=== PATIENT | female | born 1965 | race Caucasian/White ===

== ENCOUNTER → 2017-02-20 | Outpatient (CLI) | payer BC ==
[~2017-02-20] MED LIST: ASCA500 PO; CALC-20 PO; LEVO25TA PO; LEVO50TA PO; MULT-506 PO; VITBC PO
== END | disposition home or self-care (01) ==
LOC: C.LABPVFM 08:20
PROVIDERS: ATTEND Family Medicine
DX: Z13.21 Encounter for screening for nutritional disorder (principal); E89.0 Postprocedural hypothyroidism; Z90.49 Acquired absence of other specified parts of digestive tract; E55.9 Vitamin D deficiency, unspecified

== ENCOUNTER → 2017-04-05 | Outpatient (CLI) | payer BC ==
--- NOTE | 2017-04-05 13:28 | MAMMOGRAPHY REPORT ---
BILATERAL DIGITAL SCREENING MAMMOGRAM TOMOSYNTHESIS WITH CAD: 04/05/2017 CLINICAL HISTORY: Routine screening. Patient has no complaints. TECHNIQUE: Breast tomosynthesis in addition to standard 2D mammography was performed. Current study was also evaluated with a Computer Aided Detection (CAD) system. COMPARISON: Comparison is made to exams dated: 03/23/2016 mammogram, 11/03/2014 mammogram, 08/01/2013 m ammogram, 07/30/2012 mammogram, 07/27/2011 mammogram - [facility], and 07/07/2008. BREAST COMPOSITION: The tissue of both breasts is extremely dense, which lowers the sensitivity of m ammography. FINDINGS: No suspicious masses, calcifications, or areas of architectural distortion are noted in ei ther breast. There has been no significant interval change compared to prior exams. IMPRESSION: ACR BI-RADS CATEGORY 1: NEGATIVE There is no mammographic evidence of malignancy. A 1 year screening mammogram is recommended. The pa tient will receive written notification of the results. Approximately 10% of breast cancers are not detected with mammography. A negative mammographic report should not delay biopsy if a clinically suggestive mass is present. Solange Hook M.D. ah/:04/05/2017 08:59:49 Business Department Chair: Jeaneth CASTANEDA(Jose)(), [facility] letter sent: Normal 1/2 BI-RADS Code: ACR BI-RADS Category 1: Negative
== END | disposition home or self-care (01) ==
LOC: C.MAMM 08:35
PROVIDERS: ATTEND Family Medicine
DX: Z12.31 Encounter for screening mammogram for malignant neoplasm of breast (principal)

== ENCOUNTER → 2017-09-18 | Outpatient (CLI) | payer BC ==
[2017-09-18 18:19] LABS: LYME DISEASE AB IGG NEG (NEG); LYME DISEASE AB IGM NEG (NEG)
== END | disposition home or self-care (01) ==
LOC: C.LABPVFM 14:46
PROVIDERS: ATTEND Family Medicine
DX: T14.8XXA Other injury of unspecified body region, initial encounter (principal); W57.XXXA Bitten or stung by nonvenomous insect and other nonvenomous arthropods, initial encounter

== ENCOUNTER → 2017-09-25 | Outpatient (CLI) | payer BC ==
--- NOTE | 2017-09-25 15:06 | DIAGNOSTIC IMAGING REPORT ---
CHEST 2 VIEWS ROUTINE CLINICAL HISTORY: Cough dyspnea COMPARISON STUDY: 06/06/2015 FINDINGS: The bones soft tissues and hemidiaphragms are normal. The cardiomediastinal silhouette is normal. The lungs are clear. The pulmonary vasculature is normal. IMPRESSION: Negative chest. The above report was generated using voice recognition software. It may contain grammatical, syntax or spelling errors. Electronically signed by: Chidi Hayward M.D. 09/25/2017 3:04 PM Dictated Date/Time: 09/25/2017 3:04 PM
== END | disposition home or self-care (01) ==
LOC: C.LABPVFM 14:40
PROVIDERS: ATTEND Family Medicine
DX: R05 Cough (principal)

== ENCOUNTER → 2018-02-02 | Outpatient (CLI) | payer BC | END | disposition home or self-care (01) | LOC: C.PAPS 12:02 | PROVIDERS: ATTEND Obstetrics & Gynecology | DX: Z01.419 Encounter for gynecological examination (general) (routine) without abnormal findings (principal) ==

== ENCOUNTER → 2018-02-23 | Outpatient (CLI) | payer BC | END | disposition home or self-care (01) | LOC: C.LABPVFM 08:30 | PROVIDERS: ATTEND Family Medicine | DX: Z13.220 Encounter for screening for lipoid disorders (principal); E89.0 Postprocedural hypothyroidism; Z90.49 Acquired absence of other specified parts of digestive tract; E55.9 Vitamin D deficiency, unspecified; F32.9 Major depressive disorder, single episode, unspecified; M25.50 Pain in unspecified joint ==

== ENCOUNTER 2022-12-11 19:23 | Inpatient (IN) ==
[2022-12-11] MEDS ORDERED: MoRPHine SULFATE 4 MG/ML 1 ML CARP\\VIAL IV STA (19:50)
[2022-12-11] MEDS ORDERED: ACETAMINOPHEN 1,000 MG/100 ML VIAL IV STA (19:50)
[2022-12-11] MEDS ORDERED: SODIUM CHLORIDE 0.9% 1000ML 1,000 ML IV SCH (20:00)
[2022-12-11 20:35] LABS: Albumin Globulin Ratio 1.6 (0.9-2); Albumin Level 4.6 gm/dl (3.4-5.0); BUN Creatinine Ratio 19.4 (10-20); Bilirubin,Total 0.6 mg/dl (0.2-1.0); Calcium 9.8 mg/dl (8.5-10.1); Creatinine Clr Calc Pharmacy 53.7 ml/min; Est GFR (African American) 75.3 ml/min; Est GFR (Non-African American) 64.9 ml/min; Globulin 2.8 gm/dl (2.5-4.0); Potassium 3.7 mmol/L (3.5-5.1); Total Protein 7.4 gm/dl (6.0-8.3)
[2022-12-11 20:44] LABS: Prothrombin Time 10.3 Seconds (9.0-12.0)
[2022-12-11 20:51] LABS: Basophils # (auto) 0.08 K/uL (0-0.2); Basophils % (auto) 0.4 %; Hematocrit (blood only) 40.7 % (37.0-47.0); Immature Granulocytes # (auto) 0.18 K/uL (0.01-0.20); Lymphocytes # (auto) 1.75 K/uL (1.2-3.4); Lymphocytes % (auto) 9.4 %; Mean Corpuscular Hemoglobin 31.7 pg (25.0-34.0); Mean Corpuscular Hgb Conc 34.4 g/dL (32.0-36.0); Mean Corpuscular Volume 92.1 fL (80.0-100.0); Mean Platelet Volume 9.2 fL (9.4-12.4); Monocytes # (auto) 0.73 K/uL (0.11-0.59); Monocytes % (auto) 3.9 %; Neutrophils # (auto) 15.95 K/uL (1.40-6.50); Neutrophils % (auto) 85.3 %; Platelet Count 315 K/uL (130-400); RDW Coefficient of Variation 13.2 % (11.5-14.5); Red Blood Count 4.42 M/uL (4.20-5.40); White Blood Count 18.69 K/ul (4.8-10.8)
[2022-12-11] MEDS ORDERED: OPTIRAY 350 100ml IV ONE (21:15)
[2022-12-11] MEDS ORDERED: MoRPHine SULFATE 2 MG/ML CARP IV PRN (22:23)
[2022-12-11] MEDS: MoRPHine SULFATE 4 MG/ML 1 ML CARP\\VIAL IV PRN ×2 (22:27→23:11)
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
[2022-12-12] MEDS ORDERED: MoRPHine SULFATE 2 MG/ML CARP IV STA (01:21)
[2022-12-12] MEDS ORDERED: CARBOHYDRATES FOR HYPOGLYCEMIA PO PRN (01:27)
[2022-12-12] MEDS ORDERED: MAGNESIUM HYDROXIDE SUSP 30 ML UDC PO PRN (01:27)
[2022-12-12] MEDS ORDERED: ACETAMINOPHEN 500 MG TAB PO PRN (01:27)
[2022-12-12] MEDS ORDERED: NALOXONE HCL 0.4 MG/1 ML VIAL/CARP IV PRN (01:27)
[2022-12-12] MEDS ORDERED: GLUCAGON FOR INJ 1 MG VIAL SQ PRN (01:27)
[2022-12-12] MEDS ORDERED: LACTATED RINGER'S 1,000 ML IV SCH (01:27)
[2022-12-12] MEDS ORDERED: GLUCOSE 10 TAB/TUBE PO PRN (01:27)
[2022-12-12] MEDS ORDERED: bisacodyL 10 MG SUPP PR PRN (01:27)
[2022-12-12] MEDS ORDERED: GLUCOSE 40% GEL 15 GM TUBE PO PRN (01:27)
[2022-12-12] MEDS ORDERED: DEXTROSE 50% 50 ML SYRINGE IV PRN (01:27)
[2022-12-12] MEDS: LACTATED RINGER'S 1,000 ML IV SCH ×3 (01:44→18:38)
[2022-12-12] MEDS: MoRPHine SULFATE 4 MG/ML 1 ML CARP\\VIAL IV PRN ×5 (02:40→21:36)
[2022-12-12 04:46] LABS: BUN Creatinine Ratio 23.6 (10-20); Calcium 8.4 mg/dl (8.5-10.1); Est GFR (African American) 109.3 ml/min; Est GFR (Non-African American) 94.3 ml/min; Magnesium 1.7 mg/dl (1.7-2.4); Potassium 3.8 mmol/L (3.5-5.1)
[2022-12-12 06:22] LABS: Basophils # (auto) 0.03 K/uL (0-0.2); Basophils % (auto) 0.3 %; Hematocrit (blood only) 32.3 % (37.0-47.0); Immature Granulocytes # (auto) 0.05 K/uL (0.01-0.20); Immature Granulocytes % (auto) 0.4 %; Lymphocytes # (auto) 2.12 K/uL (1.2-3.4); Lymphocytes % (auto) 18.8 %; Mean Corpuscular Hgb Conc 34.1 g/dL (32.0-36.0); Mean Corpuscular Volume 93.9 fL (80.0-100.0); Mean Platelet Volume 9.5 fL (9.4-12.4); Monocytes # (auto) 0.54 K/uL (0.11-0.59); Monocytes % (auto) 4.8 %; Neutrophils # (auto) 8.56 K/uL (1.40-6.50); Neutrophils % (auto) 75.7 %; Platelet Count 239 K/uL (130-400); RDW Coefficient of Variation 13.5 % (11.5-14.5); RDW Standard Deviation 45.9 fL (36.4-46.3); Red Blood Count 3.44 M/uL (4.20-5.40)
[2022-12-12] MEDS: MAGNESIUM SULFATE / D5W 1 GM/100 ML BAG IV SCH ×3 (06:27→10:22)
[2022-12-12] MEDS: oxyCODONE HCL IR 5 MG TAB (IMMEDIATE RELEASE) PO PRN (07:19)
[2022-12-12] MEDS: ONDANSETRON INJ 2 MG/ML 2 ML VIAL IV PRN (07:23)
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
--- NOTE | 2022-12-12 08:11 | Anesthesiology Consultation ---
Date of Service December 12, 2022 Assessment & Plan (1) Encounter for pre-operative examination: Chart Review Chart Review: Acceptable Risk for Surgery History Height/Weight Height: 5 ft 3 in Weight: 56.1 kg Allergies Allergy/AdvReac Type Severity Reaction Status Date / Time Sulfa (Sulfonamide Allergy Unknown Headache Verified 08/10/22 08:56 Antibiotics) wheat AdvReac Unknown intolerance Verified 08/10/22 08:56 Medications Home Medications Medication Instructions Recorded Confirmed Last Taken cholecalciferol (vitamin D3) 125 5,000 units PO DAILY 12/27/19 12/11/22 Unknown mcg (5,000 unit) disintegrating tablet multivitamin (Daily Multi-Vitamin 1 tab PO DAILY 12/27/19 12/11/22 Unknown tablet) vitamin B complex 1 tab PO DAILY 12/27/19 12/11/22 Unknown sertraline 50 mg tablet 50 mg PO DAILY #90 tabs 03/14/22 12/11/22 Unknown conjugated estrogens 0.625 mg/gram 0.625 mg vaginal 2XWK #30 grams 03/17/22 12/11/22 Unknown vaginal cream (Premarin) cyanocobalamin (vitamin B-12) 1,000 mcg IM .COMPLEX #30 mL 06/23/22 12/11/22 Unknown 1,000 mcg/mL injection solution syringe with needle 3 mL 25 gauge #6 ea 08/17/22 12/11/22 Unknown x 1" (BD Luer-Zuleyka Syringe) levothyroxine 50 mcg capsule 100 mcg PO DAILY #52 caps 11/03/22 12/11/22 Unknown fluticasone propionate 50 2 spray intranasal QAM 12/11/22 12/11/22 Unknown mcg/actuation nasal spray,suspension Active Medications Generic Name Dose Route Start Last Admin Trade Name Freq PRN Reason Stop Dose Admin Lactated Ringer's 1,000 mls @ 110 mls/hr 12/12/22 00:45 12/12/22 01:44 Lr IV 01/11/23 00:44 110 mls/hr .Q9H6M CHRIST Administration Magnesium Sulfate/Dextrose 1 gm in 100 mls @ 50 mls/hr 12/12/22 06:00 12/12/22 06:27 Magnesium Sulfate / D5w IV 12/12/22 11:59 50 mls/hr Q2H CHIRST Administration Morphine Sulfate 4 mg 12/12/22 01:27 12/12/22 05:34 Morphine Sulfate 4 Mg/Ml 1 Ml Carp\\Vial IV 12/26/22 01:26 4 mg Q3H PRN Administration Pain (6,7,8,9,10) Ondansetron HCl 4 mg 12/12/22 01:27 12/12/22 07:23 Ondansetron Inj 2 Mg/Ml 2 Ml Vial IV 01/11/23 01:26 4 mg Q6H PRN Administration Nausea And Vomiting Oxycodone HCl 5 mg 12/12/22 01:27 12/12/22 07:19 Oxycodone Hcl Ir 5 Mg Tab (Immediate Release) PO 12/26/22 01:26 5 mg Q4H PRN Administration MODERATE Pain (4,5,6) & Pre PT Past Medical History Medical History (Updated 12/12/22 @ 08:13 by Augie Hope MD) Depression Graves' disease (06/07/11) treated with ablation Hypothyroidism, postablative Small intestinal bacterial overgrowth Uterovaginal prolapse Past Family History Family History Mother Breast cancer Sarcoma Father Diverticulosis Hypertension Lymphoma Brother Crohn's disease Colonic polyp Sister Cystic disease of liver Polycystic liver disease Colonic polyp Past Surgical History Surgical History H/O colonoscopy History of colposcopy S/P small bowel resection Social History Smoking Status: Never smoker Hx Alcohol Use: Yes Alcohol type: beer, wine and hard liquor alcohol intake frequency: 0-2 drinks per day Hx Substance Use: No Physical Exam Vital Signs Last Vital Signs Temp 37.3 C 12/12/22 07:05 Pulse 75 12/12/22 07:05 Resp 16 12/12/22 07:05 BP 93/55 L 12/12/22 07:05 Pulse Ox 97 12/12/22 07:05 O2 Del Method Room Air 12/12/22 07:05 Testing Laboratory Results 12/12/22 03:16 12/12/22 03:16 PT 10.3 Seconds (9.0-12.0) 12/11/22 19:37 INR 1.0 (0.9-1.1) 12/11/22 19:37 Blood Type O Negative 12/12/22 03:16 Antibody Screen NEGATIVE 12/12/22 03:16 Electrocardiogram Date: 12/11/22 Findings: + NSR @ (89) Other Testing c spine cleared radiologically and clinically in the ED
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
[2022-12-12] MEDS: CHOLECALCIFEROL 5,000 UNITS 125 MCG TAB PO SCH (08:35)
[2022-12-12] MEDS: SERTRALINE HCL 50 MG TABLET PO SCH (08:35)
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
[2022-12-12] MEDS: FLUTICASONE PROPIONATE NA SPR 16 GM BTL SCH (09:19)
[2022-12-12] MEDS ORDERED: LEVOTHYROXINE SODIUM 100 MCG TABLET PO STA (09:33)
--- NOTE | 2022-12-12 09:34 | Electrocardiogram Report ---
Test Reason : Blood Pressure : / mmHG Vent. Rate : 089 BPM Atrial Rate : 089 BPM P-R Int : 138 ms QRS Dur : 078 ms QT Int : 372 ms P-R-T Axes : 058 019 005 degrees QTc Int : 452 ms Normal sinus rhythm Low voltage QRS Borderline ECG No previous ECGs available Confirmed by Messi English ([id number]) on 12/12/2022 9:33:41 AM Referred By: REFERRED SELF Confirmed By:Marcos English
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
--- NOTE | 2022-12-12 11:10 | History & Physical Bridge Note ---
Date of Service December 12, 2022 History & Physical Bridge Note I have examined the patient, reviewed the History & Physical and in the interval since the performance of the History & Physical I have noted the following changes of clinical significance: no changes noted
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
[2022-12-12] MEDS ORDERED: MIDAZOLAM HCL 1 MG/ML 2ML VIAL ONE (14:26)
[2022-12-12] MEDS ORDERED: fentaNYL citrate 100 MCG/2 ML VIAL ONE (14:26)
[2022-12-12] MEDS ORDERED: PROPOFOL IV EMULSION 10 MG/ML 20 ML VIAL IV ONE ×2 (14:26→16:59)
[2022-12-12] MEDS ORDERED: ROCURONIUM BROMIDE 10 MG/ML 5 ML VIAL IV ONE (14:34)
[2022-12-12] MEDS ORDERED: DEXAMETHASONE SOD INJ 4 MG/ML VIAL ONE ×2 (14:34→16:59)
[2022-12-12] MEDS ORDERED: LIDOCAINE 2% MPF LOCAL 5 ML VIAL INFIL ONE ×2 (14:34→16:59)
[2022-12-12] MEDS ORDERED: ONDANSETRON INJ 2 MG/ML 2 ML VIAL ONE ×2 (14:34→16:59)
[2022-12-12] MEDS ORDERED: BUPIVACAINE/EPINEPHRINE 0.5% MPF 1:200,000 30 ML VIAL ONE (15:52)
[2022-12-12] MEDS ORDERED: MoRPHine SULFATE 10 MG/ML CARP/VIAL IV PRN (16:13)
[2022-12-12] MEDS ORDERED: ePHEDrine sulfate 50 MG/ML AMP IV PRN (16:13)
[2022-12-12] MEDS ORDERED: ONDANSETRON INJ 2 MG/ML 2 ML VIAL IV PRN (16:13)
[2022-12-12] MEDS ORDERED: ATROPINE SULFATE 0.1 MG/ML 10ML SYR IV PRN (16:13)
[2022-12-12] MEDS ORDERED: MEPERIDINE HCL 25 MG/ML CARP/VIAL IV PRN (16:13)
[2022-12-12] MEDS ORDERED: ceFAZolin 330 MG/ML 1 GM VIAL ONE (16:28)
[2022-12-12] MEDS ORDERED: ePHEDrine sulfate 50 MG/ML AMP ONE ×2 (16:31→16:59)
[2022-12-12] MEDS ORDERED: KETAMINE 50 MG/5 ML SYRINGE ONE (16:46)
[2022-12-12] MEDS ORDERED: ceFAZolin 2000MG 2,000 MG/15 ML SYR IV ONE (16:58)
[2022-12-12] MEDS ORDERED: HYDROmorphone INJ 2 MG/ML SYR/VIAL ONE (16:59)
--- NOTE | 2022-12-12 17:17 | Operative Report ---
PG Post Operative Report Pre & Post Diagnosis Operation Date: 12/12/22 14:45 Pre-Op Diagnosis: Right Femoral Neck Fracture Post-Op Diagnosis: Right Femoral Neck Fracture I identified the patient and participated in the time-out.: Yes Procedure Operation Date: 12/12/22 14:45 Actual Procedures p Right Hip Percutaneous Screw Fixation(Right) - Jose Guadalupe Davis DO Surgeon Jose Guadalupe Davis DO [employer] Jose Guadalupe Edwards PA-C Estimated Blood Loss 20 Findings Consistent with Post-Op Diagnosis Specimens None Description of Procedure On December 12, 2022 Yumiko was brought down from her hospital room to the preoperative holding area. The operative extremity was identified and signed. She was given a preoperative antibiotic. She was taken back the operating room put under general anesthesia. She was then put onto the fracture table. The right leg was brought out to traction. The right hip was then prepped and dr aped in sterile fashion. A timeout was done. The patient and the operative extremity was properly identified. A small longitudinal incision was made over the lateral femur. Dissection was taken down to the lateral cortex across from the lesser trochanter. With the help of fluoroscopy, a single guidepin was placed through the inferior aspect of the femoral neck into the femoral head. A second guidepin was then placed in the central aspect of the femoral neck along the posterior cortex. A third guidepin was then placed in the central aspect of the femoral neck along the anterior cortex. This gave an inverted triangle structure. The screw lengths were all measured. The lateral cortex was drilled. 3 partially-threaded 7.3 mm cannulated screws were then advanced. The inferior screw was tightened first, followed by the posterior screw, followed by the anterior screw. I was able to get excellent purchase with all screws. The wound was then irrigated. Final fluoroscopic images showed good alignment of the hardware and no further displacement of the fracture. The IT band was closed with #1 Vicryl. Skin was closed with 2-0 Vicryl and zen. She was then placed in a soft dressing. She was then extubated and transferred to a hospital bed. She was taken to the postanesthesia care unit in stable condition. She tolerated the procedure well. Jose Guadalupe Edwards PA-C, was present for the entire procedure. He was critical for patient positioning, prepping, draping, retraction exposure, wound closure and application of sterile dressing. I attest to the content of the Intraoperative Record and any orders documented therein. Any exceptions are noted below.
[2022-12-12] MEDS: fentaNYL citrate 100 MCG/2 ML VIAL IV PRN ×4 (17:42→17:57)
--- NOTE | 2022-12-12 18:13 | Anesthesiology Progress Note ---
Date of Service December 12, 2022 Anesthesia Post Procedure Vital Signs Vital Signs: Temp Pulse Pulse Pulse Resp BP BP 12/12/22 18:00 86 13 101/57 L 12/12/22 17:50 81 12 105/63 12/12/22 17:40 80 15 107/64 12/12/22 17:34 37.7 C H 90 14 109/57 L 12/12/22 14:55 36.8 C 74 18 113/72 12/12/22 14:17 36.9 C 73 16 94/59 L 12/12/22 08:29 96/63 L 12/12/22 07:05 37.3 C 75 16 93/55 L 12/12/22 01:56 37.5 C 72 16 107/69 12/12/22 01:00 79 16 12/11/22 23:40 88 12/11/22 23:10 87 18 12/11/22 19:51 94 H 12/11/22 21:30 92 H 18 12/11/22 20:20 12/11/22 19:43 37 C 95 H 20 12/11/22 19:43 37 C 95 H 20 104/64 BP Pulse Ox O2 Del Method O2 Flow Rate 12/12/22 18:00 95 Nasal Cannula 2 12/12/22 17:50 99 Oxymask 4 12/12/22 17:40 97 Oxymask 6 12/12/22 17:34 93 Oxymask 6 12/12/22 14:55 97 Room Air 12/12/22 14:17 96 Room Air 12/12/22 08:29 12/12/22 07:05 97 Room Air 12/12/22 01:56 98 Room Air 12/12/22 01:00 95/56 L 95 Room Air 12/11/22 23:40 12/11/22 23:10 116/61 93 Room Air 12/11/22 19:51 12/11/22 21:30 94/55 L 94 Room Air 12/11/22 20:20 99 Room Air 12/11/22 19:43 104/64 96 Room Air 12/11/22 19:43 96 Room Air Pain Intensity Right Shoulder: Pain Intensity: 9 Right Hip: Pain Intensity: 6 Transfer of Care Handoff Completed per policy Notes Mental Status: alert / awake / arousable Patient Amnestic to Procedure: Yes Nausea / Vomiting: adequately controlled Pain: adequately controlled Airway Patency, RR, SpO2: stable & adequate BP & HR: stable & adequate Hydration State: stable & adequate Anesthetic Complications: no major complications apparent and Pt Satisfied with anesthetic care
--- NOTE | 2022-12-12 18:49 | Fluoroscopy Report ---
FL hip RT 2-3V CLINICAL HISTORY: Right hip fracture. Intraoperative study. COMPARISON STUDY: Pelvis and right hip 12/11/2022. FLUOROSCOPY TIME: 1 minute and 1 second FLUOROSCOPY IMAGES: 2 EXPOSURE DOSE: K a, r = 16.9 mGy FINDINGS: 3 cannulated screws transfix the right femoral neck fracture. The hardware appears intact. IMPRESSION: Fluoroscopic assistance for internal fixation of a right hip fracture. ACT 112: Negative or not required by law. Electronically signed by: Duncan Watson M.D. 12/12/2022 6:48 PM
--- NOTE | 2022-12-12 19:12 | XRay Report ---
XR hip RT min 2V CLINICAL HISTORY: Post-Operative implant position COMPARISON STUDY: Right hip 12/11/2022 FINDINGS: Status post internal fixation of the impacted right femoral neck fracture with 3 cannulated screws. The hardware appears intact. The alignment is slightly improved. No dislocation. Skin staple s are in place. IMPRESSION: Status post internal fixation of the impacted right femoral neck fracture with 3 cannula ganga screws. ACT 112: Negative or not required by law. Electronically signed by: Duncan Watson M.D. 12/12/2022 7:10 PM
[2022-12-12] MEDS: DOCUSATE SODIUM/SENNA 50/8.6MG TAB PO SCH (21:36)
[2022-12-12] MEDS: ceFAZolin 2000MG 2,000 MG/15 ML SYR IV SCH (23:15)
[2022-12-13] MEDS: oxyCODONE HCL IR 5 MG TAB (IMMEDIATE RELEASE) PO PRN ×3 (03:58→22:07)
[2022-12-13] MEDS: ONDANSETRON INJ 2 MG/ML 2 ML VIAL IV PRN (03:58)
--- NOTE | 2022-12-13 06:17 | Orthopedic Progress Note ---
Date of Service December 13, 2022 Assessment & Plan (1) Fracture of femoral neck, right: Overall she is doing fairly well with the right hip. I will keep her partial weightbearing for now. She can certainly be sitting up in bed or out of a chair at bedside. She can use a commode. She is on aspirin twice a day for DVT prophylaxis for the hip at this point. (2) Right humeral fracture: With regards to the right shoulder, we will obtain a CT scan of the shoulder today. Based on the CT scan, we will make some decisions about whether surgical fixation would be beneficial and what type of surgery would be best. After we make that decision, we will make a decision on timing of the procedure. For now, she can remain in the sling. We will not do any surgeries today and she can have a full diet at this time. Joshua Yumiko was seen and examined at bedside this morning. Overall she is doing fairly well. She is not having too much pain in the right hip. Her shoulder continues to be sore. She had no acute events overnight.. Review of Systems All systems reviewed & are unremarkable except as noted in HPI & below. Physical Exam On physical examination of the right hip, the dressing is clean and dry. Her leg is out full extension. She is wearing a right arm sling as instructed.. Results & Data Results & Data Laboratory Results . Diagnostic Findings Postoperative x-rays of the right hip show the screw placement to be in good alignment without any displacement of the fracture.. PG Care Time/CCT Total # of Minutes Spent Total Time Spent with Patient: Total time spent is greater than 50% in coordination of care (as documented) at patient's floor/unit and/or counseling patient: Coding Level of Care Code 49224 SUB INP/OBS CARE 2/35MIN (25 - SIGNIFICANT, SEPARATELY IDENTIFIABLE ) Diagnoses Fracture of femoral neck, right S72.001A Right humeral fracture S42.301A
[2022-12-13] MEDS: ceFAZolin 2000MG 2,000 MG/15 ML SYR IV SCH (06:24)
[2022-12-13] MEDS: LEVOTHYROXINE SODIUM 100 MCG TABLET PO SCH (06:24)
[2022-12-13 06:36] LABS: BUN Creatinine Ratio 12.1 (10-20); Calcium 8.3 mg/dl (8.5-10.1); Creatinine Clr Calc Pharmacy 90.7 ml/min; Est GFR (African American) 120.3 ml/min; Est GFR (Non-African American) 103.8 ml/min; Magnesium 1.8 mg/dl (1.7-2.4); Potassium 3.8 mmol/L (3.5-5.1)
[2022-12-13 06:51] LABS: Basophils # (auto) 0.02 K/uL (0-0.2); Basophils % (auto) 0.2 %; Hematocrit (blood only) 31.6 % (37.0-47.0); Hemoglobin 10.5 g/dl (12.0-16.0); Immature Granulocytes # (auto) 0.05 K/uL (0.01-0.20); Immature Granulocytes % (auto) 0.5 %; Lymphocytes # (auto) 1.15 K/uL (1.2-3.4); Lymphocytes % (auto) 11.8 %; Mean Corpuscular Hemoglobin 31.7 pg (25.0-34.0); Mean Corpuscular Hgb Conc 33.2 g/dL (32.0-36.0); Mean Corpuscular Volume 95.5 fL (80.0-100.0); Mean Platelet Volume 9.3 fL (9.4-12.4); Monocytes # (auto) 0.59 K/uL (0.11-0.59); Neutrophils # (auto) 7.95 K/uL (1.40-6.50); Neutrophils % (auto) 81.5 %; Platelet Count 210 K/uL (130-400); RDW Coefficient of Variation 13.6 % (11.5-14.5); RDW Standard Deviation 47.5 fL (36.4-46.3); Red Blood Count 3.31 M/uL (4.20-5.40); White Blood Count 9.76 K/ul (4.8-10.8)
[2022-12-13] MEDS: FLUTICASONE PROPIONATE NA SPR 16 GM BTL SCH (07:37)
[2022-12-13] MEDS: SERTRALINE HCL 50 MG TABLET PO SCH (07:37)
[2022-12-13] MEDS: CHOLECALCIFEROL 5,000 UNITS 125 MCG TAB PO SCH (07:37)
[2022-12-13] MEDS: ASPIRIN 81 MG ECTAB PO SCH ×2 (07:37→22:06)
[2022-12-13] MEDS ORDERED: ASPIRIN 81 MG ECTAB PO SCH (09:00)
[2022-12-13] MEDS: MoRPHine SULFATE 4 MG/ML 1 ML CARP\\VIAL IV PRN ×2 (10:35→16:43)
[2022-12-13] MEDS ORDERED: OXYBUTYNIN CHLORIDE 5 MG TAB PO STA (13:55)
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
--- NOTE | 2022-12-13 17:33 | CT Scan Report ---
RIGHT SHOULDER CT CT DOSE: 290.11 mGy.cm HISTORY: right shoulder fracture TECHNIQUE: Multiaxial CT images of the right shoulder were performed and reformatted in the sagittal and coronal plane without the use of contrast. A dose lowering technique was utilized adhering to th e principles of ALARA. COMPARISON: Right shoulder radiograph 12/11/2022 FINDINGS: There or again noted displaced, impacted, and severely comminuted fractures within the righ t humeral neck which extends into the greater tuberosity of the humeral head. This demonstrates up to 1.5 cm of lateral displacement. There is inferior subluxation of the humeral head in relation to the glenoid without definite dislocation. The scapula and right clavicle appear intact. Soft tissue swel ling noted within the right shoulder. There is a right shoulder effusion/hemarthrosis. IMPRESSION: 1. Redemonstration of the comminuted and displaced right humeral head/neck fracture. 2. There is inferior subluxation of the humeral head in relation to the glenoid without definite disl ocation. ACT 112: Negative or not required by law. Electronically signed by: Duncan Watson M.D. 12/13/2022 5:32 PM
[2022-12-13] MEDS: FERROUS SULFATE 325 MG TAB PO SCH (18:28)
[2022-12-13] MEDS: OXYBUTYNIN CHLORIDE 5 MG TAB PO SCH (22:06)
[2022-12-13] MEDS: DOCUSATE SODIUM/SENNA 50/8.6MG TAB PO SCH (22:07)
[2022-12-14] MEDS: oxyCODONE HCL IR 5 MG TAB (IMMEDIATE RELEASE) PO PRN ×4 (02:19→21:04)
[2022-12-14] MEDS: LEVOTHYROXINE SODIUM 100 MCG TABLET PO SCH (05:55)
--- NOTE | 2022-12-14 06:37 | Orthopedic Progress Note ---
Date of Service December 14, 2022 Assessment & Plan (1) Fracture of femoral neck, right: With regards to her right hip she is doing about as well as expected. We will keep her partial weightbearing for now in the right hip. She is on aspirin for DVT prophylaxis. The dressing looks good. (2) Right humeral fracture: With regards to her right shoulder, we discussed diagnosis and treatment options at bedside. The fracture is displaced and severely comminuted. I do not think it is amendable to open reduction internal fixation. I think she would do much better with a fracture reverse shoulder arthroplasty. She understands the risk, benefits, and alternatives to procedures elected to proceed. Questions were answered at bedside. She will be n.p.o. past midnight tonight. We will plan to replace her right shoulder tomorrow afternoon. Subjective Yumiko was seen and examined at bedside this morning. She still having a lot of pain in the right shoulder. The hip is a little bit more sore today. She had no acute events overnight.. Review of Systems All systems reviewed & are unremarkable except as noted in HPI & below. Physical Exam On physical examination the right shoulder, she is wearing her sling as instructed. I did not do any range of motion testing on her right shoulder. Examination of the right hip shows the dressing is clean and dry. She has active dorsiflexion plantarflexion of her right ankle.. Results & Data Results & Data Laboratory Results . Diagnostic Findings CT scan of the right shoulder was reviewed in detail. It is severely comminuted and impacted right proximal humerus fracture.. PG Care Time/CCT Total # of Minutes Spent Total Time Spent with Patient: Total time spent is greater than 50% in coordination of care (as documented) at patient's floor/unit and/or counseling patient: Coding Level of Care Code 08767 SUB INP/OBS CARE 2/35MIN (57 - DECISION FOR SURGERY) Diagnoses Fracture of femoral neck, right S72.001A Encounter type: initial encounter Fracture type: closed Right humeral fracture S42.301A Encounter type: initial encounter Fracture type: closed Humerus Location: proximal (1) Fracture of femoral neck, right Encounter type: initial encounter Fracture type: closed Qualified Code(s): S72.001A - Fracture of unspecified part of neck of right femur, initial encounter for closed fracture (2) Right humeral fracture Encounter type: initial encounter Fracture type: closed Humerus Location: proximal
[2022-12-14 08:08] LABS: Basophils # (auto) 0.04 K/uL (0-0.2); Basophils % (auto) 0.4 %; Hematocrit (blood only) 30.9 % (37.0-47.0); Hemoglobin 10.6 g/dl (12.0-16.0); Immature Granulocytes # (auto) 0.03 K/uL (0.01-0.20); Immature Granulocytes % (auto) 0.3 %; Lymphocytes % (auto) 23.1 %; Mean Corpuscular Hemoglobin 31.5 pg (25.0-34.0); Mean Corpuscular Hgb Conc 34.3 g/dL (32.0-36.0); Mean Corpuscular Volume 91.7 fL (80.0-100.0); Mean Platelet Volume 9.8 fL (9.4-12.4); Monocytes # (auto) 0.65 K/uL (0.11-0.59); Monocytes % (auto) 6.5 %; Neutrophils # (auto) 6.93 K/uL (1.40-6.50); Neutrophils % (auto) 69.7 %; Platelet Count 199 K/uL (130-400); RDW Coefficient of Variation 13.4 % (11.5-14.5); Red Blood Count 3.37 M/uL (4.20-5.40); White Blood Count 9.95 K/ul (4.8-10.8)
[2022-12-14 08:32] LABS: BUN Creatinine Ratio 10.7 (10-20); Calcium 8.6 mg/dl (8.5-10.1); Creatinine Clr Calc Pharmacy 70.1 ml/min; Est GFR (Non-African American) 89.7 ml/min; Magnesium 1.7 mg/dl (1.7-2.4); Potassium 3.8 mmol/L (3.5-5.1)
[2022-12-14] MEDS: FLUTICASONE PROPIONATE NA SPR 16 GM BTL SCH (09:12)
[2022-12-14] MEDS: ASPIRIN 81 MG ECTAB PO SCH ×2 (09:13→21:05)
[2022-12-14] MEDS: CHOLECALCIFEROL 5,000 UNITS 125 MCG TAB PO SCH (09:13)
[2022-12-14] MEDS: FERROUS SULFATE 325 MG TAB PO SCH ×2 (09:13→17:26)
[2022-12-14] MEDS: OXYBUTYNIN CHLORIDE 5 MG TAB PO SCH ×2 (09:13→21:04)
[2022-12-14] MEDS: SERTRALINE HCL 50 MG TABLET PO SCH (09:13)
[2022-12-14] MEDS: MoRPHine SULFATE 4 MG/ML 1 ML CARP\\VIAL IV PRN ×2 (10:03→10:17)
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
[2022-12-14 15:27] LABS: Appearance Urine Cloudy (Clear); Bacteria Urine Automated Negative (Negative); Blood Urine 3+ (Negative); Color Urine Red; Glucose Urine UA Negative (Negative); Ketones Urine Negative (Negative); Leukocyte Esterase Urine 2+ (Negative); Nitrite Urine Negative (Negative); Protein Urine 2+ (Negative); Specific Gravity Urine 1.017 (1.000-1.030); Urobilinogen Urine Negative (Negative); pH Urine 5.5 (4.5-7.5)
[2022-12-14 15:55] LABS: Bilirubin Urine 1+ (Negative)
[2022-12-14 16:52] LABS: RBC Urine Automated >30 /hpf (0-4)
[2022-12-14] MEDS: DOCUSATE SODIUM/SENNA 50/8.6MG TAB PO SCH (21:07)
[2022-12-15] MEDS: oxyCODONE HCL IR 5 MG TAB (IMMEDIATE RELEASE) PO PRN ×2 (02:20→06:31)
[2022-12-15] MEDS: LEVOTHYROXINE SODIUM 100 MCG TABLET PO SCH (05:34)
[2022-12-15] MEDS ORDERED: BUPIVACAINE 0.5 % 5 MG/1 ML PF 10ML VIAL ONE (06:34)
[2022-12-15] MEDS: CHOLECALCIFEROL 5,000 UNITS 125 MCG TAB PO SCH (07:58)
[2022-12-15] MEDS: FLUTICASONE PROPIONATE NA SPR 16 GM BTL SCH (07:58)
[2022-12-15] MEDS: SERTRALINE HCL 50 MG TABLET PO SCH (07:58)
[2022-12-15] MEDS: ASPIRIN 81 MG ECTAB PO SCH ×2 (07:58→21:34)
[2022-12-15] MEDS: OXYBUTYNIN CHLORIDE 5 MG TAB PO SCH ×2 (07:58→21:34)
[2022-12-15] MEDS: FERROUS SULFATE 325 MG TAB PO SCH ×2 (07:59→18:14)
[2022-12-15 08:01] LABS: Basophils # (auto) 0.06 K/uL (0-0.2); Basophils % (auto) 0.6 %; Eosinophils # (auto) 0.01 K/uL (0-0.50); Eosinophils % (auto) 0.1 %; Hematocrit (blood only) 31.5 % (37.0-47.0); Immature Granulocytes # (auto) 0.03 K/uL (0.01-0.20); Immature Granulocytes % (auto) 0.3 %; Lymphocytes # (auto) 2.13 K/uL (1.2-3.4); Mean Corpuscular Hemoglobin 31.7 pg (25.0-34.0); Mean Corpuscular Hgb Conc 34.9 g/dL (32.0-36.0); Mean Corpuscular Volume 90.8 fL (80.0-100.0); Mean Platelet Volume 9.2 fL (9.4-12.4); Monocytes # (auto) 0.51 K/uL (0.11-0.59); Monocytes % (auto) 5.5 %; Neutrophils # (auto) 6.53 K/uL (1.40-6.50); Neutrophils % (auto) 70.5 %; Platelet Count 235 K/uL (130-400); Red Blood Count 3.47 M/uL (4.20-5.40); White Blood Count 9.27 K/ul (4.8-10.8)
[2022-12-15 08:31] LABS: BUN Creatinine Ratio 12.5 (10-20); Calcium 8.8 mg/dl (8.5-10.1); Creatinine Clr Calc Pharmacy 82.2 ml/min; Est GFR (African American) 116.4 ml/min; Est GFR (Non-African American) 100.5 ml/min; Potassium 3.9 mmol/L (3.5-5.1)
[2022-12-15] MEDS: FLUCONAZOLE 100 MG TAB PO SCH (11:08)
[2022-12-15] MEDS ORDERED: PROPOFOL IV EMULSION 10 MG/ML 20 ML VIAL IV ONE (11:14)
[2022-12-15] MEDS ORDERED: fentaNYL citrate 100 MCG/2 ML VIAL ONE (11:14)
[2022-12-15] MEDS ORDERED: ONDANSETRON INJ 2 MG/ML 2 ML VIAL ONE (11:14)
[2022-12-15] MEDS ORDERED: LIDOCAINE 2% MPF LOCAL 5 ML VIAL INFIL ONE (11:14)
[2022-12-15] MEDS ORDERED: ROCURONIUM BROMIDE 10 MG/ML 5 ML VIAL IV ONE ×4 (11:14→13:59)
[2022-12-15] MEDS ORDERED: DEXAMETHASONE SOD INJ 4 MG/ML VIAL ONE (11:14)
[2022-12-15] MEDS ORDERED: MIDAZOLAM HCL 1 MG/ML 2ML VIAL ONE (11:14)
[2022-12-15] MEDS: SODIUM CHLORIDE 0.9% 1000ML 1,000 ML IV SCH (11:43)
--- NOTE | 2022-12-15 12:00 | Anesthesiology Consultation ---
Date of Service December 15, 2022 Assessment & Plan Chart Review Chart Review: Acceptable Risk for Surgery Consults Requested none ASA ASA2 Proposed Anesthesia Anesthesia Type: General Regional Regional Laterality: Right Site: Interscalene Risk / Benefits Reviewed With: PT / POA / Parent / Guardian, Accepts Plan and Informed Consent Obtained History Surgery Operation Date: 12/12/22 14:45 Proposed Procedures p Right ORIF Hip Cannulated Screw - Jose Guadalupe Davis DO Operation Date: 12/15/22 13:00 Proposed Procedures p Right Fracture Reverse Total Shoulder Arthroplasty - Jose Guadalupe Davis DO Height/Weight Height: 5 ft 3 in Weight: 56.1 kg Allergies Allergy/AdvReac Type Severity Reaction Status Date / Time Sulfa (Sulfonamide Allergy Unknown Headache Verified 08/10/22 08:56 Antibiotics) wheat AdvReac Unknown intolerance Verified 08/10/22 08:56 Medications Home Medications Medication Instructions Recorded Confirmed Last Taken cholecalciferol (vitamin D3) 125 5,000 units PO DAILY 12/27/19 12/11/22 Unknown mcg (5,000 unit) disintegrating tablet multivitamin (Daily Multi-Vitamin 1 tab PO DAILY 12/27/19 12/11/22 Unknown tablet) vitamin B complex 1 tab PO DAILY 12/27/19 12/11/22 Unknown sertraline 50 mg tablet 50 mg PO DAILY #90 tabs 03/14/22 12/11/22 Unknown conjugated estrogens 0.625 mg/gram 0.625 mg vaginal 2XWK #30 grams 03/17/22 12/11/22 Unknown vaginal cream (Premarin) cyanocobalamin (vitamin B-12) 1,000 mcg IM .COMPLEX #30 mL 06/23/22 12/11/22 Unknown 1,000 mcg/mL injection solution syringe with needle 3 mL 25 gauge #6 ea 08/17/22 12/11/22 Unknown x 1" (BD Luer-Zuleyka Syringe) levothyroxine 50 mcg capsule 100 mcg PO DAILY #52 caps 11/03/22 12/11/22 Unknown fluticasone propionate 50 2 spray intranasal QAM 12/11/22 12/11/22 Unknown mcg/actuation nasal spray,suspension Active Medications Generic Name Dose Route Start Last Admin Trade Name Freq PRN Reason Stop Dose Admin Aspirin 81 mg 12/13/22 09:00 12/15/22 07:58 Aspirin 81 Mg Ectab PO 01/12/23 08:59 81 mg BID CHRIST Administration Ferrous Sulfate 325 mg 12/13/22 17:00 12/15/22 07:59 Ferrous Sulfate 325 Mg Tab PO 01/12/23 16:59 Not Given BIDM CHRIST Fluconazole 100 mg 12/15/22 09:15 12/15/22 11:08 Fluconazole 100 Mg Tab PO 12/20/22 09:14 100 mg QAM CHRIST Administration Protocol Fluticasone Propionate 2 sprays 12/12/22 09:00 12/15/22 07:58 Fluticasone Propionate Na Spr 16 Gm Btl NA 01/11/23 08:59 2 sprays QAM [facility] Administration Sodium Chloride 1,000 mls @ 80 mls/hr 12/15/22 11:30 12/15/22 11:43 Nss 1000ml IV 01/14/23 11:29 80 mls/hr .[id number] CHRIST Administration Levothyroxine Sodium 100 mcg 12/13/22 06:30 12/15/22 05:34 Levothyroxine Sodium 100 Mcg Tablet PO 01/12/23 06:29 100 mcg DAILYBB [facility]RIST Administration Morphine Sulfate 4 mg 12/12/22 01:27 12/14/22 10:17 Morphine Sulfate 4 Mg/Ml 1 Ml Carp\\Vial IV 12/26/22 01:26 4 mg Q3H PRN Administration Pain (6,7,8,9,10) Ondansetron HCl 4 mg 12/12/22 01:27 12/13/22 03:58 Ondansetron Inj 2 Mg/Ml 2 Ml Vial IV 01/11/23 01:26 4 mg Q6H PRN Administration Nausea And Vomiting Oxybutynin Chloride 5 mg 12/13/22 21:00 12/15/22 07:58 Oxybutynin Chloride 5 Mg Tab PO 01/12/23 20:59 5 mg BID CHRIST Administration Oxycodone HCl 5 mg 12/12/22 01:27 12/15/22 06:31 Oxycodone Hcl Ir 5 Mg Tab (Immediate Release) PO 12/26/22 01:26 5 mg Q4H PRN Administration MODERATE Pain (4,5,6) & Pre PT Senna/Docusate Sodium 2 tab 12/12/22 21:00 12/14/22 21:07 Docusate Sodium/Senna 50/8.6mg Tab PO 01/11/23 20:59 Not Given HS [facility]RIST Sertraline HCl 50 mg 12/12/22 09:00 12/15/22 07:58 Sertraline Hcl 50 Mg Tablet PO 01/11/23 08:59 50 mg DAILY [facility]RIST Administration Vitamin D 5,000 units 12/12/22 09:00 12/15/22 07:58 Cholecalciferol 5,000 Units 125 Mcg Tab PO 01/11/23 08:59 5,000 units DAILY [facility]RIST Administration NPO Date Last Intake of Fluids: 12/12/22 Time Last Intake of Fluids: 07:30 Last Intake of Fluids Comment: sip of water w/oxycodone Date Last Intake of Solids: 12/11/22 Time Last Intake of Solids: 12:00 Last Intake of Solids Comment: oxycodone Past Medical History Medical History Depression Graves' disease (06/07/11) treated with ablation Hypothyroidism, postablative Small intestinal bacterial overgrowth Uterovaginal prolapse Exercise / Class Metabolic Activity II 4-5 Yardwork/Stairs/Walk up hill Past Family History Family History Mother Breast cancer Sarcoma Father Diverticulosis Hypertension Lymphoma Brother Crohn's disease Colonic polyp Sister Cystic disease of liver Polycystic liver disease Colonic polyp Past Surgical History Surgical History H/O colonoscopy History of colposcopy S/P small bowel resection Past Anesthesia History No Hx of Anesthesia Complications History of PONV No Hx of PONV Social History Smoking Status: Never smoker Hx Alcohol Use: Yes Alcohol type: beer, wine and hard liquor alcohol intake frequency: 0-2 drinks per day Hx Substance Use: No Physical Exam Vital Signs Last Vital Signs Temp 37.4 C 12/15/22 07:31 Pulse 80 12/15/22 07:31 Resp 16 12/15/22 07:31 BP 108/71 12/15/22 07:31 Pulse Ox 97 12/15/22 07:31 O2 Del Method Room Air 12/15/22 07:31 O2 Flow Rate 1.0 12/13/22 03:02 ENMT Mallampati Class: II Neck normal visual inspection Respiratory normal respiratory effort Auscultation: lungs clear to auscultation bilaterally Cardiovascular Rate/Rhythm: regular rate and regular rhythm Testing Laboratory Results 12/15/22 07:10 12/15/22 07:10 PT 10.3 Seconds (9.0-12.0) 12/11/22 19:37 INR 1.0 (0.9-1.1) 12/11/22 19:37 Urine Color Red 12/14/22 15:00 Urine Appearance Cloudy (Clear) A 12/14/22 15:00 Urine pH 5.5 (4.5-7.5) 12/14/22 15:00 Ur Specific [place]lord 1.017 (1.000-1.030) 12/14/22 15:00 Urine Protein 2+ (Negative) H 12/14/22 15:00 Urine Glucose (UA) Negative (Negative) 12/14/22 15:00 Urine Ketones Negative (Negative) 12/14/22 15:00 Urine Nitrite Negative (Negative) 12/14/22 15:00 Ur Leukocyte Esterase 2+ (Negative) H 12/14/22 15:00 Urine WBC (Auto) 10-30 /hpf (0-5) H 12/14/22 15:00 Urine RBC (Auto) >30 /hpf (0-4) H 12/14/22 15:00 U Hyaline Cast (Auto) 1-5 /lpf (0-5) 12/14/22 15:00 U Epithel Cells (Auto) 10-20 /lpf (0-5) H 12/14/22 15:00 Urine Bacteria (Auto) Negative (Negative) 12/14/22 15:00 Blood Type O Negative 12/12/22 03:16 Antibody Screen NEGATIVE 12/12/22 03:16 Electrocardiogram Date: 12/11/22 Findings: + NSR @ (89)
[2022-12-15] MEDS ORDERED: ceFAZolin 2,000 MG/15 ML IV PUSH IV ONE (12:29)
--- NOTE | 2022-12-15 12:40 | Orthopedic Progress Note ---
Date of Service December 15, 2022 Assessment & Plan (1) Fracture of femoral neck, right: We will proceed with a fracture reverse shoulder arthroplasty. She understands the risk, benefits, and alternatives to procedures like to proceed. Questions were answered and consents were signed. Time spent describing the procedure and post expectations with her and her . Joshua Calderon was seen and examined at bedside. Overall she is doing fairly well. She is very happy to be getting her shoulder done today. She still having pain in the right shoulder. She is doing very well with regards to her right hip. Review of Systems All systems reviewed & are unremarkable except as noted in HPI & below. Physical Exam On physical examination the right shoulder, she is wearing her sling as instructed. Examination of the hip shows the dressing to be clean and dry.. Results & Data Results & Data Laboratory Results . Diagnostic Findings . PG Care Time/CCT Total # of Minutes Spent Total Time Spent with Patient: Total time spent is greater than 50% in coordination of care (as documented) at patient's floor/unit and/or counseling patient: Coding Level of Care Code 07454 SUB INP/OBS CARE 2MIN Diagnoses Fracture of femoral neck, right S72.001A Encounter type: initial encounter Fracture type: closed (1) Fracture of femoral neck, right Encounter type: initial encounter Fracture type: closed Qualified Code(s): S72.001A - Fracture of unspecified part of neck of right femur, initial encounter for closed fracture
--- NOTE | 2022-12-15 12:41 | History & Physical Bridge Note ---
Date of Service December 15, 2022 History & Physical Bridge Note I have examined the patient, reviewed the History & Physical and in the interval since the performance of the History & Physical I have noted the following changes of clinical significance: no changes noted
[2022-12-15] MEDS ORDERED: ROPIVACAINE 0.5% HCL/PF 150 MG, BUPIVACAINE 0.75% MPF 20 ML, EPINEPHrine 30MG/30ML (OR ... INFIL ONE (12:45)
[2022-12-15] MEDS ORDERED: ATROPINE SULFATE 0.1 MG/ML 10ML SYR IV PRN (13:14)
[2022-12-15] MEDS ORDERED: METOCLOPRAMIDE HCL INJ 5 MG/ML 2 ML VIAL IV PRN (13:14)
[2022-12-15] MEDS ORDERED: HYDROmorphone INJ 1 MG/ML SYRINGE IV PRN (13:14)
[2022-12-15] MEDS ORDERED: ePHEDrine sulfate 50 MG/ML AMP IV PRN (13:14)
[2022-12-15] MEDS ORDERED: fentaNYL citrate 100 MCG/2 ML VIAL IV PRN (13:14)
[2022-12-15] MEDS ORDERED: ONDANSETRON INJ 2 MG/ML 2 ML VIAL IV PRN (13:14)
[2022-12-15] MEDS ORDERED: ALBUMIN HUMAN 5% 12.5 GM/250 ML VIAL IV ONE (13:23)
[2022-12-15] MEDS ORDERED: PHENYLEPHRINE HCL 10 MG/ML VIAL ONE (13:27)
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
--- NOTE | 2022-12-15 14:38 | Operative Report ---
PG Post Operative Report Pre & Post Diagnosis Operation Date: 12/12/22 14:45 Pre-Op Diagnosis: Right femoral neck fracture Post-Op Diagnosis: Right femoral neck fracture Operation Date: 12/15/22 13:00 Pre-Op Diagnosis: Comminuted displaced right proximal humerus fracture Post-Op Diagnosis: Comminuted displaced right proximal humerus fracture I identified the patient and participated in the time-out.: Yes Procedure Operation Date: 12/12/22 14:45 Actual Procedures p Right Hip Percutaneous Screw Fixation(Right) - Jose Guadalupe Davis DO Operation Date: 12/15/22 13:00 Actual Procedures p Right Fracture Reverse Total Shoulder Arthroplasty(Right) - Jose Guadalupe Davis DO Surgeon Jose Guadalupe Davis DO Pit [employer] Jose Guadalupe Edwards PA-C Estimated Blood Loss 250 Findings Consistent with Post-Op Diagnosis Specimens Right humeral head Description of Procedure A CPT code modifier 59: The long head of the biceps tendon was frayed and damaged secondary to the fracture. A tenodesis was opted. This was a separate and distinct portion of the procedure. For these reasons, a CPT code modifier 59 will be added to this case. Implants used: I used a [employer]omet Comprehensive fracture reverse total shoulder arthroplasty system with a size 10 press fit standard fracture humeral stem, a +6 offset humeral tray and a standard humeral bearing, a 25 mm small augment baseplate with a 6.5 mm central screw and superior and inferior locking screws, and a size 36 mm eccentric glenosphere. Yumiko arrived at [facility] for the above procedure. She was seen in the preoperative holding area and the operative extremity was identified and signed. She was given a preoperative antibiotic, TXA, and an interscalene nerve block. She was taken back to the operating room, laid on table in supine position, and put under general anesthesia. She was then put into the beachchair position. The shoulder was then prepped and draped in sterile fashion. A timeout was done and the patient and the operative extremity was properly identified. A deltopectoral approach was used. Dissection was taken down through the fascia and the deltoid was retracted laterally and the conjoined tendon was retracted medially. The fracture was easily exposed. The biceps groove was opened up and the biceps tendon was examined extensively. The biceps tendon demonstrated fraying and damage secondary to the trauma and fracture. The long head of the biceps tendon was then tenodesed to the upper border of the pectoralis major. This was a separate and distinct portion of the procedure. An oscillating saw and osteotome were then used to separate the lesser tuberosity fragment and the greater tuberosity fragment from the humeral head. The humeral head was then removed. Time was then spent shaping the greater and lesser tuberosities. Four #5 FiberWire sutures were passed through the infraspinatus at its articular junction. These would later be used for a repair of the rotator cuff around the prosthesis. The glenoid was then easily exposed. Time was spent doing a complete circumferential capsular release. The glenoid guide was then placed in the inferior aspect of the glenoid. A 3.2 mm Steinmann pin was then placed into the glenoid vault at 10 of inclination. The glenoid baseplate was then reamed. The final size 25 mm small augment baseplate was then impacted in the place. A 6.5 mm central screw was then placed followed by superior and inferior locking screws. A 36 mm eccentric glenosphere was then impacted into place. Surrounding soft tissues were then injected with 100 cc an orthopedic pain control cocktail. The proximal humerus was then exposed. A canal finding reamer was sent down the center of the humeral canal. Sequential reaming up to a size 10 reamer was done. A 10 trial humeral stem was then impacted into place at 25 degrees of retroversion. A +6 offset humeral tray was then placed on the humeral trial stem and the shoulder was reduced. The shoulder was brought through a full range of motion and felt to be stable. Two #5 FiberWire sutures were passed through the humeral shaft for later rotator cuff and tuberosity fixation. The final size 10 standard fracture humeral stem was then impacted into place. A standard humeral bearing was snapped onto a +6 offset humeral tray. The humeral tray was then impacted on the humeral stem. The shoulder was then reduced. The shoulder was brought through a full range of motion and felt to be stable. 2 of the FiberWire sutures were passed through the holes of the fracture stem and passed around the stem to reduce the greater tuberosity. 2 additional sutures were passed through holes of the fracture stem and passed around the stem to reduce the lesser tuberosity. The 2 humeral shaft sutures were used to pull down the lesser tuberosity and the greater tuberosity to keep them from migrating medially. The shoulder was brought through a full range of motion. I was happy with the overall reduction of the tuberosities and the motion of the shoulder. A dilute betadyne lavage was then done for 3 minutes. The joint was then irrigated with normal saline solution. Hemostasis was obtained. The interval was closed with 2-0 Vicryl suture. The skin was then closed with 2-0 Vicryl and zen. A Silverlon dressing was placed and the arm was rested in a regular arm sling. She was then extubated and transferred to a hospital bed. She taken to the postanesthesia care unit in stable condition. She tolerated the procedure well. Jose Guadalupe Edwards PA-C, was present for the entire procedure. He was critical for patient positioning, prepping, draping, retraction exposure, wound closure and application of sterile dressing. I attest to the content of the Intraoperative Record and any orders documented therein. Any exceptions are noted below.
--- NOTE | 2022-12-15 15:08 | Anesthesiology Progress Note ---
Date of Service December 15, 2022 Anesthesia Post Procedure Vital Signs Vital Signs: Temp Pulse Pulse Resp BP Pulse Ox O2 Del Method 12/15/22 15:05 93 H 15 103/69 100 Oxymask 12/15/22 14:55 36.0 C L 107 H 16 108/40 L 100 Oxymask 12/15/22 11:45 36.8 C 87 20 109/76 96 Room Air 12/15/22 07:31 37.4 C 80 16 108/71 97 Room Air 12/14/22 20:20 Room Air 12/14/22 19:10 37.6 C H 84 18 97/63 L 92 Room Air 12/14/22 15:21 37.5 C 83 16 102/69 94 Room Air O2 Flow Rate 12/15/22 15:05 5 12/15/22 14:55 5 12/15/22 11:45 12/15/22 07:31 12/14/22 20:20 12/14/22 19:10 12/14/22 15:21 Pain Intensity Right Shoulder: Pain Intensity: 1 Right Hip: Pain Intensity: 4 Transfer of Care Handoff Completed per policy Notes Mental Status: alert / awake / arousable and participated in evaluation Nausea / Vomiting: adequately controlled Pain: adequately controlled Airway Patency, RR, SpO2: stable & adequate BP & HR: stable & adequate Hydration State: stable & adequate Anesthetic Complications: no major complications apparent and Pt Satisfied with anesthetic care
--- NOTE | 2022-12-15 15:30 | Anesthesiology Progress Note ---
Date of Service December 15, 2022 Anesthesia Post Procedure Vital Signs Vital Signs: Temp Pulse Pulse Resp BP Pulse Ox O2 Del Method 12/15/22 15:25 36.6 C 90 14 108/74 95 Room Air 12/15/22 15:15 91 H 18 104/70 96 Room Air 12/15/22 15:05 93 H 15 103/69 100 Oxymask 12/15/22 14:55 36.0 C L 107 H 16 108/40 L 100 Oxymask 12/15/22 11:45 36.8 C 87 20 109/76 96 Room Air 12/15/22 07:31 37.4 C 80 16 108/71 97 Room Air 12/14/22 20:20 Room Air 12/14/22 19:10 37.6 C H 84 18 97/63 L 92 Room Air O2 Flow Rate 12/15/22 15:25 12/15/22 15:15 12/15/22 15:05 5 12/15/22 14:55 5 12/15/22 11:45 12/15/22 07:31 12/14/22 20:20 12/14/22 19:10 Pain Intensity Right Shoulder: Pain Intensity: 1 Right Hip: Pain Intensity: 4 Transfer of Care Handoff Completed per policy Notes Mental Status: alert / awake / arousable Patient Amnestic to Procedure: Yes Nausea / Vomiting: adequately controlled Pain: adequately controlled Airway Patency, RR, SpO2: stable & adequate BP & HR: stable & adequate Hydration State: stable & adequate Anesthetic Complications: no major complications apparent
--- NOTE | 2022-12-15 16:05 | XRay Report ---
XR shoulder RT 1V CLINICAL HISTORY: post op reverse shoulder TECHNIQUE: 3 views of the right shoulder were obtained. Comparison: Comparison is made to right shoulder radiograph 12/11/2022 FINDINGS: Patient is status post shoulder arthroplasty with expected postsurgical changes including soft tissue swelling and subcutaneous emphysema. No periarticular lucency or hardware fracture is seen. IMPRESSION: Expected postoperative appearance status post placement of shoulder arthroplasty. ACT 112: Negative or not required by law. Electronically signed by: Girish Cantor M.D. 12/15/2022 4:04 PM
[2022-12-15] MEDS: ONDANSETRON INJ 2 MG/ML 2 ML VIAL IV PRN (17:52)
[2022-12-15] MEDS: DOCUSATE SODIUM/SENNA 50/8.6MG TAB PO SCH (21:34)
[2022-12-16] MEDS: SODIUM CHLORIDE 0.9% 1000ML 1,000 ML IV SCH (04:03)
[2022-12-16] MEDS: ACETAMINOPHEN 500 MG TAB PO PRN ×2 (04:08→17:42)
[2022-12-16] MEDS: LEVOTHYROXINE SODIUM 100 MCG TABLET PO SCH (05:59)
[2022-12-16] MEDS: SERTRALINE HCL 50 MG TABLET PO SCH (08:28)
[2022-12-16] MEDS: OXYBUTYNIN CHLORIDE 5 MG TAB PO SCH (08:28)
[2022-12-16] MEDS: FLUCONAZOLE 100 MG TAB PO SCH (08:28)
[2022-12-16] MEDS: FLUTICASONE PROPIONATE NA SPR 16 GM BTL SCH (08:28)
[2022-12-16] MEDS: ASPIRIN 81 MG ECTAB PO SCH (08:28)
[2022-12-16] MEDS: FERROUS SULFATE 325 MG TAB PO SCH ×2 (08:29→17:41)
[2022-12-16] MEDS: CHOLECALCIFEROL 5,000 UNITS 125 MCG TAB PO SCH (08:29)
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
[2022-12-16] MEDS: oxyCODONE HCL IR 5 MG TAB (IMMEDIATE RELEASE) PO PRN (14:48)
[2022-12-21] MEDS ORDERED: CYANOCOBALAMIN 1000 MCG/ML VIAL IM SCH (09:00)
== END 2022-12-16 19:09 | disposition home health service (06) | DRG 481 ==
LOC: ED 19:23 → 3W 12-12 00:43 → SUATTDRO 12-12 00:43 → 3W 12-12 01:21 → 3E 12-12 16:53